=== PATIENT | female | born 1985 | race Caucasian/White ===

== ENCOUNTER 2017-02-09 21:30 | Observation (INO) | payer MEDICAID ==
[~2017-02-09] VITALS: Ht 152.4 cm; Wt 69.4 kg
[~2017-02-09 21:30] MED LIST: ACETAMINOPHEN500 M4 PO; BACTRIM DS 8001 TA1 PO; BACTRIM DS 8001 TAB; CEPHALEXIN500 MG PO; FLUCONAZOLE 10100 MG PO; LORTAB 5/500 501 TAB PO; MIRENA52 MG IU; NITROGLYCERIN0.4 MG SL; PHENERGAN 25MG.25 M1 PO
[2017-02-09 21:36] VITALS: BP 131/88
[2017-02-09] MEDS ORDERED: OMEPRAZOLE40 MG PO (21:42)
--- NOTE | 2017-02-09 22:26 | Emergency Room Report ---
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 N Clinical Suspician of Infection? N Mental Status: 1 - Regular (Normal Baseline) Sepsis Risk:Low Sepsis Risk Have you (or family members/close friends) recently traveled outside the [place]? N If Yes, where/when: Have you had exposure to infectious disease within the past month? N TB? Other? Specify: Source patient, RN notes reviewed, family, old records Exam Limitations no limitations Comment progressive tenderness and reddness rt ant chest with tenderness rt breast and had seen hand compositor - pt presents with inc sx tonight Cardiac Chest Pain Chest pain indicative of cardiac No Timing/Duration this evening Severity moderate ALLERGIES Coded Allergies: No Known Allergies (02/09/17) Home Medications Reported Medications Levonorgestrel (Mirena) 52 MG IU EVERY 5 YEARS Omeprazole (Omeprazole 40MG) 40 MG PO DAILY #30 History Medical History General CAD? No Angina: No [place]: No Hypertension? No Hyperlipidemia? No CHF? No DVT? No PE? No COPD? No Asthma? No Anemia? No GERD? No Gastric ulcers? No GI Bleed? No Hernia? No Thyroid Problems? No Hypothyroidism? No CVA? No Seizures? No Diabetes? No Renal Insuffiency? No End Stage Renal Disease? No UTI? Yes Stones? No BPH? No GB Disease: No Nephritic Syndrome? No Asplenia? No Hepatitis? No Sickle Cell Disease? No Arthritis? No Migraines? No Cataracts? No Glaucoma? No MRSA? No HIV? No TB? No Anxiety? No Depression? No Cancer? No More? 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 Respiratory denies cough, denies shortness of breath, denies wheezing Cardiovascular denies chest pain, denies palpitations, denies syncope Gastrointestinal denies abdominal pain, denies diarrhea, denies vomiting Genitourinary denies: dysuria, frequency, hesitancy, hematuria. Musculoskeletal denies back pain, denies joint pain, denies joint swelling, denies neck pain Skin see HPI, denies rash, other Psychiatric/Neurological denies headache, denies seizure Physical Exam Vital Signs Vital Signs Date Time Temp Pulse Resp B/P Pulse O2 O2 Flow FiO2 Ox Delivery Rate 02/10 2136 98.7 94 18 131/88 100 - WBC >12,000 or <4,000 or 10% bands? 2 or more SIRS Criteria Met? B/P:116/69 MAP:102 Creatinine >2.0? UA output<0.5ml/kg/hr for 2 hrs? Platelet count >100,000? Lactate >2.0mmol/1? INR >1.2 or PTT > than 60 sec? Evidence of Organ Dysfunction? Provider documented clinical suspician of infection? N Sepsis Criteria Count: 1 Sepsis Risk: Low Sepsis Risk General Appearance no apparent distress Eye Exam - bilateral eye PERRL, bilateral eye EOMI Ear, Nose, Throat normal ENT inspection Neck supple Respiratory Status No: respiratory distress. Cardiovascular regular rate/rhythm, no murmur Peripheral Pulses Pulses normal Yes Gastrointestinal soft Extremities normal inspection Strength 4 Upper Ext (L), 4 Upper Ext (R), 4 Lower Ext (L), 4 Lower Ext (R) Neurologic alert, perinatal specialist II-XII nml as tested, no motor/sensory deficits Reflexes Reflexes normal No Mental status normal mood/affect Skin rt ant chest with reddness and tenderness consistent with cellulitis and no mastitis by exam Medical Decision Making LABS/Meds/Orders Pt receiving controlled substance in ED? No Results/Orders Laboratory Tests 02/09/172249: Lactic Acid 0.6 02/09/172249: Sodium 138, Potassium 3.6, Chloride 103, Carbon Dioxide 29, BUN 12, Creatinine 0.7, Estimated Creat Clear 127, Estimated GFR (MDRD) 96, Glucose 88, Calcium 9.3 , Total Bilirubin 0.5, AST 11 L, ALT 22, Alkaline Phosphatase 71, Creatine Kinase 56, CK-MB (CK-2) Rel Index 0.9, CK and CKMB Interp < 0.5, Troponin I < 0.02, Total Protein 8.2, Albumin 4.5, Globulin 3.7 H, Albumin/Globulin Ratio 1.2, WBC 12.9 H, RBC 4.37, Hgb 13.9, Hct 39.8, MCV 91.2, RDW 12.0, Plt Count 338, MPV 7.1 L, Gran % 74.0, Gran # 9.6 H, Lymphocytes % 17.1, Monocytes % 3.6 , Eosinophils % 4.7, Basophils % 0.5, Lymphocytes # 2.2, Monocytes # 0.5, Eosinophils # 0.6 H, Basophils # 0.1, PUBS MCHC 35.0, ESR 26 H, MCH 31.9 H Current Medication Orders Sig/Deondre Start time Last Medication Dose Route Stop Time Status Admin Iopamidol 75 ML ONCE ONE 02/10 15 UNV 02/10 IV 02/10 001 0004 Sodium Chloride 10 ML ONCE ONE 02/105 UNV 02/10 IV 02/10 0016 0004 Sodium Chloride 10 ML PRN PRN 02/09 2230 AC IV 02/10 2227 Orders Procedure Date/time Status DIET-NOTHING BY MOUTH 02/[address] CHEST W/ CONTRAST 02/[address] SCAN REQ 02/10 2228 Complete CHEST(2 VIEWS-NOT PORTABLE) 02/10 2228 Active IV SALINE LOCK 02/10 2228 Active CULTURE, BLOOD 02/10 2228 Active LACTIC ACID 02/10 2228 Complete SED RATE 02/10 2228 Complete C-REACTIVE PROTEIN 02/10 2228 Complete COMPLETE METABOLIC PANEL 02/10 2228 Complete CBC WITH AUTO DIFF 02/10 2228 Complete CARDIAC ENZYMES 02/10 2228 Complete Departure Departure Time of Disposition 0041 Disposition Still a Patient Clinical Impression Primary Impression: Cellulitis of chest wall Condition STABLE Referrals CLAY ALCALA (Family) discussed with dr schultz ED Critical Care Critical Care No at 0108
--- NOTE | 2017-02-09 22:26 | Emergency Room Report ---
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 N Clinical Suspician of Infection? N Mental Status: 1 - Regular (Normal Baseline) Sepsis Risk:Low Sepsis Risk Have you (or family members/close friends) recently traveled outside the [place]? N If Yes, where/when: Have you had exposure to infectious disease within the past month? N TB? Other? Specify: Source patient, RN notes reviewed, family, old records Exam Limitations no limitations Comment progressive tenderness and reddness rt ant chest with tenderness rt breast and had seen watch electrician - pt presents with inc sx tonight Cardiac Chest Pain Chest pain indicative of cardiac No Timing/Duration this evening Severity moderate ALLERGIES Coded Allergies: No Known Allergies (02/09/17) Home Medications Reported Medications Levonorgestrel (Mirena) 52 MG IU EVERY 5 YEARS Omeprazole (Omeprazole 40MG) 40 MG PO DAILY #30 History Medical History General CAD? No Angina: No [place]: No Hypertension? No Hyperlipidemia? No CHF? No DVT? No PE? No COPD? No Asthma? No Anemia? No GERD? No Gastric ulcers? No GI Bleed? No Hernia? No Thyroid Problems? No Hypothyroidism? No CVA? No Seizures? No Diabetes? No Renal Insuffiency? No End Stage Renal Disease? No UTI? Yes Stones? No BPH? No GB Disease: No Nephritic Syndrome? No Asplenia? No Hepatitis? No Sickle Cell Disease? No Arthritis? No Migraines? No Cataracts? No Glaucoma? No MRSA? No HIV? No TB? No Anxiety? No Depression? No Cancer? No More? 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 Respiratory denies cough, denies shortness of breath, denies wheezing Cardiovascular denies chest pain, denies palpitations, denies syncope Gastrointestinal denies abdominal pain, denies diarrhea, denies vomiting Genitourinary denies: dysuria, frequency, hesitancy, hematuria. Musculoskeletal denies back pain, denies joint pain, denies joint swelling, denies neck pain Skin see HPI, denies rash, other Psychiatric/Neurological denies headache, denies seizure Physical Exam Vital Signs Vital Signs Date Time Temp Pulse Resp B/P Pulse O2 O2 Flow FiO2 Ox Delivery Rate 02/10 2136 98.7 94 18 131/88 100 - WBC >12,000 or <4,000 or 10% bands? 2 or more SIRS Criteria Met? B/P:116/69 MAP:102 Creatinine >2.0? UA output<0.5ml/kg/hr for 2 hrs? Platelet count >100,000? Lactate >2.0mmol/1? INR >1.2 or PTT > than 60 sec? Evidence of Organ Dysfunction? Provider documented clinical suspician of infection? N Sepsis Criteria Count: 1 Sepsis Risk: Low Sepsis Risk General Appearance no apparent distress Eye Exam - bilateral eye PERRL, bilateral eye EOMI Ear, Nose, Throat normal ENT inspection Neck supple Respiratory Status No: respiratory distress. 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 No Results/Orders Laboratory Tests 02/09/172249: Lactic Acid 0.6 02/09/172249: Sodium 138, Potassium 3.6, Chloride 103, Carbon Dioxide 29, BUN 12, Creatinine 0.7, Estimated Creat Clear 127, Estimated GFR (MDRD) 96, Glucose 88, Calcium 9.3 , Total Bilirubin 0.5, AST 11 L, ALT 22, Alkaline Phosphatase 71, Creatine Kinase 56, CK-MB (CK-2) Rel Index 0.9, CK and CKMB Interp < 0.5, Troponin I < 0.02, Total Protein 8.2, Albumin 4.5, Globulin 3.7 H, Albumin/Globulin Ratio 1.2, WBC 12.9 H, RBC 4.37, Hgb 13.9, Hct 39.8, MCV 91.2, RDW 12.0, Plt Count 338, MPV 7.1 L, Gran % 74.0, Gran # 9.6 H, Lymphocytes % 17.1, Monocytes % 3.6 , Eosinophils % 4.7, Basophils % 0.5, Lymphocytes # 2.2, Monocytes # 0.5, Eosinophils # 0.6 H, Basophils # 0.1, PUBS MCHC 35.0, ESR 26 H, MCH 31.9 H Current Medication Orders Sig/Deondre Start time Last Medication Dose Route Stop Time Status Admin Iopamidol 75 ML ONCE ONE 02/10 15 UNV 02/10 IV 02/10 001 0004 Sodium Chloride 10 ML ONCE ONE 02/105 UNV 02/10 IV 02/10 0016 0004 Sodium Chloride 10 ML PRN PRN 02/09 2230 AC IV 02/10 2227 Orders Procedure Date/time Status DIET-NOTHING BY MOUTH 02/[address] CHEST W/ CONTRAST 02/[address] SCAN REQ 02/10 2228 Complete CHEST(2 VIEWS-NOT PORTABLE) 02/10 2228 Active IV SALINE LOCK 02/10 2228 Active CULTURE, BLOOD 02/10 2228 Active LACTIC ACID 02/10 2228 Complete SED RATE 02/10 2228 Complete C-REACTIVE PROTEIN 02/10 2228 Complete COMPLETE METABOLIC PANEL 02/10 2228 Complete CBC WITH AUTO DIFF 02/10 2228 Complete CARDIAC ENZYMES 02/10 2228 Complete Departure Departure Time of Disposition 0041 Disposition Still a Patient Clinical Impression Primary Impression: Cellulitis of chest wall Condition STABLE Referrals CLAY ALCALA (Family) discussed with dr schultz ED Critical Care Critical Care No at 0108
[2017-02-09 23:10] LABS: HEMOGLOBIN 13.9 g/dL (12.2-16.2); LYMPH # 2.2 K/mm3 (0.7-4.5); LYMPH % 17.1 % (10-50.0)
[2017-02-09 23:43] LABS: BUN 12 mg/dL (7-18); GFR (ESTIMATED) 96 ML/MIN (59-)
[2017-02-10] VITALS (7 sets, daily range): BP systolic 92–113; BP diastolic 51–64
--- NOTE | 2017-02-10 05:04 | RADIOLOGY REPORT PS360 ---
CHEST(2 VIEWS-NOT PORTABLE) HISTORY: chest pain ORDERING PHYSICIAN: Rodrigo Romero MD PATIENT AGE: 31 years FINDINGS: The cardiomediastinal silhouette and pulmonary vascularity are within normal limits. The lungs are clear without infiltrates, suspicious nodules, or pleural effusions. No acute bony abnormalities. IMPRESSION: Negative chest, no acute finding
--- NOTE | 2017-02-10 05:04 | RADIOLOGY REPORT PS360 ---
CT CHEST W/ CONTRAST INDICATION: Mass, lump, or swelling in the chest, chest wall pain, right anterior chest wall, breast area pain, redness and swelling, evaluate for abscess INFECTED CHEST WALL ORDERING PHYSICIAN: Rodrigo Romero MD PATIENT AGE: 31 years COMPARISON: None TECHNIQUE: Axial images are obtained with contrast. Sagittal and coronal reformatted images are reviewed as well. FINDINGS: No mediastinal or hilar mass. There is slight increased density within the intermediastinum probably related to residual finding tissue. Normal heart size. No suspicious pulmonary nodule. Calcified granulomas present in the right lower lobe posteriorly. No effusions or infiltrates. Minor atelectatic changes are present in the left lung base. No obvious chest wall mass. No abscess. No evidence of aortic aneurysm or central pulmonary embolus. The peripheral pulmonary arteries are not well opacified. No acute bony anomalies. Upper abdominal images are unremarkable. IMPRESSION: 1. No acute findings. No evidence of chest wall abscess. 2. Old granulomatous disease.
--- NOTE | 2017-02-10 07:19 | PHARMACY CLINIC NOTE ---
Patient Demographics Patient Demographics Admission date: 02/10/17 Date: 02/10/17 Time: 07 Allergies Coded Allergies: No Known Allergies (02/10/17) HEIGHT- FT: 5 IN: 0.00 K.429 VTE General Information Labs: Laboratory Tests 02/09 2250 Hematology Hgb (12.2 - 16.2 g/dL) 13.9 Hct (37.0 - 47.0 %) 39.8 Plt Count (142 - 424 K/mm3) 338 Disclaimer The following section includes nursing documentation that has been pulled in for pharmacy review. Patient's VTE score: 1 Patient's VTE Risk: VERY LOW RISK Clinical trial participant? No VTE prophylaxis [id number] VTE prophylaxis ordered? Yes Type of prophylaxis/treatment: [place] at 0719
--- NOTE | 2017-02-10 08:49 | HISTORY AND PHYSICAL REPORT ---
History and Physical ([facility]) Date of admission: 02/10/17 Chief complaint: right breast pain History: History of Present Illness: Ms Shah is a 31 year old female who presented to [facility] ER at the direction of Dr. Gray last PM with Breast pain and edema of the breast, upper chest wall and axilla for 2 weeks duration. She then developed erythema below the neck. She denies nipple discharge or previous breast problems. She denies fever. She did see Dr. Prado in his office 02/08/17 and an US was ordered for today. With evaluation in the ER CT of the chest was negative and CXR was negative. She was admitted with cellulitis and started on ABX. Past Medical History: Medical History: CAD? No Angina: No [place]: No Hypertension? No Hyperlipidemia? No CHF? No DVT? No PE? No COPD? No Asthma? No Anemia? No GERD? Yes Gastric ulcers? No GI Bleed? No Hernia? No Thyroid Problems? No Hypothyroidism? No CVA? No Seizures? No Diabetes? No Renal Insuffiency? No UTI? Yes Stones? No BPH? No GB Disease: No Nephritic Syndrome? No Asplenia? No Hepatitis? No Sickle Cell Disease? No Arthritis? No Migraines? No Cataracts? No Glaucoma? No MRSA? No HIV? No TB? No Anxiety? No Depression? No Cancer? No More? No Surgical history: Previous Surgery?Y C SECTION X2 LAPAROSCOPY Exploratory Laparoscopy BRONCHOSCOPY ABD R/T CYST/NODULE-CA Medications: Reported Medications Levonorgestrel (Mirena) 52 MG IU EVERY 5 YEARS Omeprazole (Omeprazole 40MG) 40 MG PO DAILY #30 Allergies: Coded Allergies: No Known Allergies (02/10/17) Family History: Family history: Negative for: CAD, DM. Social History: Smoking Hx Tobacco: No Smoker: Former Smoker Type: Cigarettes Packs/day: < 1 Pack Are you exposed to second hand No Alcohol: Alcohol: No Hx of Drug Use: Drug Use? No Review of Systems: Constitutional No: chills, weak. ENT No: ear ache, nasal congestion, sore throat. Cardiovascular Positive for: palpitations. No: chest pain, edema. Respiratory No: shortness of air, non-productive, productive cough (sputum). GI Positive for: GERD. No: constipation, diarrhea, hematemeis, hematochezia, melena, nausea, vomitting. (female) No: frequency, hematuria, pelvic pain, vaginal bleeding. Neurological No: bowel dysfunction, confusion, dizziness, headache, seizure, syncope. Musculoskeletal Positive for: joint pain (back). Physical Exam: Vital signs: 1ST Vital Signs Result Date Time Pulse Ox 100 02/10 2136 B/P 131/88 02/10 2136 Temp 98.7 02/10 2136 Pulse 94 02/10 2136 Resp 18 02/10 2136 O2 Delivery ROOM AIR 02/10 0137 Exam: General appearance: alert, active, no acute distress, well-developed, well- nourished Eyes: anicteric, pupils reactive to light ENT: mucous membranes moist, pharynx normal Neck: full range of motion, lymphadenopathy (right), thyroid (normal) Cardiovascular: regular rate & rhythm Respiratory: clear to auscultation (bilat anterior and posterior) ABD: soft, no tenderness, bowel sounds present Extremities: no peripheral edema, no calf tenderness Skin: rash (below neck in upper chest) Neuro: alert, oriented Lab data: Labs: Laboratory Tests 02/09/172249: Lactic Acid 0.6 02/09/172249: Sodium 138, Potassium 3.6, Chloride 103, Carbon Dioxide 29, BUN 12, Creatinine 0.7, Estimated Creat Clear 127, Estimated GFR (MDRD) 96, Glucose 88, Calcium 9.3 , Total Bilirubin 0.5, AST 11 L, ALT 22, Alkaline Phosphatase 71, Creatine Kinase 56, CK-MB (CK-2) Rel Index 0.9, CK and CKMB Interp < 0.5, Troponin I < 0.02, Total Protein 8.2, Albumin 4.5, Globulin 3.7 H, Albumin/Globulin Ratio 1.2, WBC 12.9 H, RBC 4.37, Hgb 13.9, Hct 39.8, MCV 91.2, RDW 12.0, Plt Count 338, MPV 7.1 L, Gran % 74.0, Gran # 9.6 H, Lymphocytes % 17.1, Monocytes % 3.6 , Eosinophils % 4.7, Basophils % 0.5, Lymphocytes # 2.2, Monocytes # 0.5, Eosinophils # 0.6 H, Basophils # 0.1, PUBS MCHC 35.0, ESR 26 H, MCH 31.9 H Microbiology 02/09 2250 BLOOD: Anaerobic Blood Culture - RECD 02/09 2250 BLOOD: Aerobic Blood Culture - RECD Radiology results: Results: 02/09/17 CXR IMPRESSION: Negative chest, no acute finding 02/09/17 CT of chest IMPRESSION: 1. No acute findings. No evidence of chest wall abscess. 2. Old granulomatous disease. Diagnosis(es): 1. Cellulitis of chest wall 2. Lymphadenitis, acute Plan: continue with ABX; will US right breast and Axilla; Dr. Prado consulted (Selina Lara APRN) Diagnosis(es): 1. Cellulitis of chest wall 2. Lymphadenitis, acute Plan: Pt seen and examined. On exam, the right upper chest wall is tender with only very mild erythema and no induration. No open areas or drainage. Concur with above assessment and plan. (Rodrigo Romero MD) at 0849 at [phone]
--- NOTE | 2017-02-10 19:21 | RADIOLOGY REPORT PS360 ---
US BREAST-RT COMPLETE W/AXILLA HISTORY: right breast pain with LADinflammation swelling redness cellulitis right breast. Lump or swelling at chest Patient Age: 31 years: Female Ordering Physician: Rodrigo Romero MD TECHNIQUE: Ultrasound right breast performed. COMPARISON :CT chest from yesterday FINDINGS Images were reviewed by hyperbaric technician with with Dr. Perez, but I been asked to dictate since she is an inpatient There is edema in the superficial soft tissues of the breast with what appears to be some associated skin thickening.. This appears to be most pronounced on the images near the nipple. And particularly evident on the images at 5-8:00 No significant underlying lesion at the breast only mild diffuse edematous appearance. Only otherwise note small 6.8 mm x 3.6 mm cyst is seen at 12:00 in the central breast,. The edema and inflammation inflammation seems less pronounced in the region about this area and thus I favor this is a small cyst rather than abscess. Small thin wall cyst . Scattered nonspecific nodes are seen at the axillary region. Largest 2.2 cm maximally. No unique enlarged nor or suspicious nodes IMPRESSION: 1. Findings compatible with cellulitis. No Abscess evident. 2. Swelling/Edema left breast, most notable on these images in the region of central breast & deep to the areola. . On submitted images the edema seems to be particularly evident towards more dependent inferior breast from 5:00-to the 8 o'clock position.. 3 No no abscess evident. No significant inflammatory fluid collection evident 4.. small 3.6 x 6.8 mm cyst at 12:00.
[2017-02-11 04:00] VITALS: BP 96/53
[2017-02-11 06:52] LABS: LYMPH # 2.4 K/mm3 (0.7-4.5); LYMPH % 22.3 % (10-50.0)
[2017-02-11 07:36] VITALS: BP 93/59
[2017-02-11 08:25] VITALS: BP 93/59
--- NOTE | 2017-02-11 08:25 | ACUTE CARE PROGRESS NOTE (QUA) ---
Progress Notes Subjective Date 02/11/17 Time 0720 Note Pt resting in bed, states she slept little due to right breast and anterior chest pain. She denies nausea or vomiting, has been up to the bathroom without difficulty, is voiding normally. She feels redness has improved, however, pain has continued since starting antibiotic. Objective Findings Laboratory Tests 02/11/17 0600: Sodium 138, Potassium 3.8, Chloride 106, Carbon Dioxide 27, BUN 10, Creatinine 0.6, Estimated Creat Clear 146, Estimated GFR (MDRD) 115, Glucose 96, Calcium 7.8 L, WBC 10.5, RBC 3.41 L, Hgb 11.0 L, Hct 31.4 L, MCV 92.1, RDW 12.3, Plt Count 267, MPV 6.9 L, Gran % 68.5, Gran # 7.2, Lymphocytes % 22.3, Monocytes % 4.0, Eosinophils % 5.0, Basophils % 0.2, Lymphocytes # 2.4, Monocytes # 0.4, Eosinophils # 0.5 H, Basophils # 0.0, PUBS MCHC 34.8, MCH 32.1 H Vital Signs Date Time Temp Pulse Resp B/P Pulse O2 O2 Flow FiO2 Ox Delivery Rate 02/11 0736 98.1 73 16 93/59 96 ROOM AIR 02/11 0400 98.5 79 16 96/53 94 ROOM AIR 02/11 0311 16 02/10 2127 16 02/10 1940 98.2 78 16 92/51 100 02/10 1900 98.2 78 20 92/51 100 ROOM AIR 02/10 1609 20 02/10 1600 98.2 75 20 96/54 97 ROOM AIR Last VS-Temp:98.1 B/P:93/59 Pulse:73 Resp:16 SaO2:96 ROOM AIR Last weight lbs:153 oz:1 K.429 Method:Bed Scales 02/10/17 Right Breast Ultrasound: 1. Findings compatible with cellulitis. No Abscess evident. 2. Swelling/Edema left breast, most notable on these images in the region of central breast & deep to the areola. On submitted images the edema seems to be particularly evident towards more dependent inferior breast from 5:00-to the 8 o 'clock position. 3. No no abscess evident. No significant inflammatory fluid collection evident . 4. Small 3.6 x 6.8 mm cyst at 12:00. Exam General appearance: alert, awake, no acute distress Neck: non-tender, full range of motion, right cervical LAD with ttp right neck, anterior chest, right axilla, and right breast Cardiovascular: regular rate & rhythm, normal peripheral pulses Respiratory: CTAB A&P ABD: non-distended, no rebound, soft, no tenderness, no guarding, no organomegaly, no palpable mass, bowel sounds present Extremities: moves all, no peripheral edema, warm, no calf tenderness Skin: rash on upper chest Neuro: alert, oriented, speech clear, no focal deficit Reviewed: medications, vital signs, lab results, radiology report, nursing notes Assessment/Plan Problem List 1. Cellulitis of chest wall 2. Lymphadenitis, acute Patient condition Improving Plan: continue current care This inpt stay is expected to cross 2 MNs from start of care Yes (JOSE LUIS DAVIS APRN) Subjective Date 02/11/17 Assessment/Plan Problem List 1. Cellulitis of chest wall 2. Lymphadenitis, acute Plan: Pt seen and examined. Concur with above. Possible discharge home tomorrow. (Rodrigo Romero MD) at 0825 at [phone]
[2017-02-11 15:54] VITALS: BP 102/54
[2017-02-11 19:44] VITALS: BP 101/59
[2017-02-11 21:40] VITALS: BP 101/59
[2017-02-12 03:56] VITALS: BP 101/63
[2017-02-12 07:21] VITALS: BP 114/64
[2017-02-12 07:55] VITALS: BP 114/64
[2017-02-12] MEDS ORDERED: AUGMENTIN 875-1 EACH PO (08:01)
[2017-02-12] MEDS ORDERED: KETOROLAC 10MG10 MG PO (08:04)
--- NOTE | 2017-02-12 08:44 | ACUTE CARE PROGRESS NOTE (QUA) ---
Progress Notes Subjective Date 02/12/17 Time 0715 Note Pt up in chair this morning, no complaints noted other than continued right breast and chest discomfort. Objective Findings Vital Signs Date Time Temp Pulse Resp B/P Pulse O2 O2 Flow FiO2 Ox Delivery Rate 02/12 0755 98.1 72 16 114/64 95 02/12 0721 98.1 72 16 114/64 95 ROOM AIR 02/12 0356 98.3 70 16 101/63 98 ROOM AIR 02/12 0027 18 02/11 2140 98.2 99 18 101/59 97 02/11 2004 18 02/11 1944 98.2 99 18 101/59 97 ROOM AIR 02/11 1554 97.9 70 16 102/54 96 ROOM AIR 02/11 1345 16 Exam General appearance: alert, awake, no acute distress Neck: non-tender, supple, right cervical lymphadenopathy with ttp right neck, chest, axilla, breast Cardiovascular: regular rate & rhythm, normal peripheral pulses Respiratory: CTAB A&P ABD: non-distended, no rebound, soft, no tenderness, no guarding, no organomegaly, no palpable mass, bowel sounds present Extremities: moves all, no peripheral edema, warm, no calf tenderness Skin: rash upper chest and right breast Neuro: alert, oriented, speech clear, no focal deficit Reviewed: medications, vital signs, lab results, radiology report, nursing notes Assessment/Plan Problem List 1. Cellulitis of chest wall 2. Lymphadenitis, acute Patient condition Improving Plan: Discharge home today. This inpt stay is expected to cross 2 MNs from start of care Yes (JOSE LUIS DAVIS APRN) Subjective Date 02/12/17 Assessment/Plan Problem List 1. Cellulitis of chest wall 2. Lymphadenitis, acute Plan: Pt seen and examined this AM. CHest wall pain is improving and now localized mostly jus to the breast. Redness on upper chest wall is resolved and right axillary node is smaller. She is stable to be discharged home on oral antibiotics and will f/u with Dr. Prado as outpt. (Rodrigo Romero MD) at [phone] at 0935
[2017-02-12 09:25] VITALS: BP 114/64
--- NOTE | 2017-02-13 08:24 | DISCHARGE SUMMARY STANDARD ---
Discharge Summary (FCA2) Date of admission: 02/10/17 Date of discharge: 02/12/17 Problem List: 1. Cellulitis of chest wall 2. Lymphadenitis, acute History of present illness: Ms Shah is a 31 year old female who presented to [facility] ER at the direction of Dr. Gray last PM with Breast pain and edema of the breast, upper chest wall and axilla for 2 weeks duration. She then developed erythema below the neck. She denied nipple discharge or previous breast problems. She denied fever. She did see Dr. Prado in his office 02/08/17 and an US was ordered for today. With evaluation in the ER CT of the chest was negative and CXR was negative. She was admitted with cellulitis and started on ABX. Exam on admission: 1ST Vital Signs Result Date Time Pulse Ox 100 02/10 2136 B/P 131/88 02/10 2136 Temp 98.7 02/10 2136 Pulse 94 02/10 2136 Resp 18 02/10 2136 O2 Delivery ROOM AIR 02/10 013 Exam: General appearance: alert, active, no acute distress, well-developed, well- nourished Eyes: anicteric, pupils reactive to light ENT: mucous membranes moist, pharynx normal Neck: full range of motion, lymphadenopathy (right), thyroid (normal) Cardiovascular: regular rate & rhythm Respiratory: clear to auscultation (bilat anterior and posterior) ABD: soft, no tenderness, bowel sounds present Extremities: no peripheral edema, no calf tenderness Skin: rash (below neck in upper chest) Neuro: alert, oriented Hospital Course: Patient was started on IVF, IV Augmentin and prn pain med on admission. The rash and edema of the right breast improved daily. On 02/12/17 she was ready for discharge. She was to continue with PO Augmentin and FU with Dr. Prado. Laboratory data this visit: 02/09/170: Lactic Acid 0.6 02/09/172249: Sodium 138, Potassium 3.6, Chloride 103, Carbon Dioxide 29, BUN 12, Creatinine 0.7, Estimated Creat Clear 127, Estimated GFR (MDRD) 96, Glucose 88, Calcium 9.3 , Total Bilirubin 0.5, AST 11 L, ALT 22, Alkaline Phosphatase 71, Creatine Kinase 56, CK-MB (CK-2) Rel Index 0.9, CK and CKMB Interp < 0.5, Troponin I < 0.02, Total Protein 8.2, Albumin 4.5, Globulin 3.7 H, Albumin/Globulin Ratio 1.2, WBC 12.9 H, RBC 4.37, Hgb 13.9, Hct 39.8, MCV 91.2, RDW 12.0, Plt Count 338, MPV 7.1 L, Gran % 74.0, Gran # 9.6 H, Lymphocytes % 17.1, Monocytes % 3.6 , Eosinophils % 4.7, Basophils % 0.5, Lymphocytes # 2.2, Monocytes # 0.5, Eosinophils # 0.6 H, Basophils # 0.1, PUBS MCHC 35.0, ESR 26 H, MCH 31.9 02/11/17 0600: Sodium 138, Potassium 3.8, Chloride 106, Carbon Dioxide 27, BUN 10, Creatinine 0.6, Estimated Creat Clear 146, Estimated GFR (MDRD) 115, Glucose 96, Calcium 7.8 L, WBC 10.5, RBC 3.41 L, Hgb 11.0 L, Hct 31.4 L, MCV 92.1, RDW 12.3, Plt Count 267, MPV 6.9 L, Gran % 68.5, Gran # 7.2, Lymphocytes % 22.3, Monocytes % 4.0, Eosinophils % 5.0, Basophils % 0.2, Lymphocytes # 2.4, Monocytes # 0.4, Eosinophils # 0.5 H, Basophils # 0.0, PUBS MCHC 34.8, MCH 32.1 H Imagin02/09/17 CXR IMPRESSION: Negative chest, no acute finding 02/09/17 CT of chest IMPRESSION: 1. No acute findings. No evidence of chest wall abscess. 2. Old granulomatous disease. 02/10/17 Right Breast Ultrasound: 1. Findings compatible with cellulitis. No Abscess evident. 2. Swelling/Edema left breast, most notable on these images in the region of central breast & deep to the areola. On submitted images the edema seems to be particularly evident towards more dependent inferior breast from 5:00-to the 8 o 'clock position. 3. No no abscess evident. No significant inflammatory fluid collection evident . 4. Small 3.6 x 6.8 mm cyst at 12:00. Discharge medications: Continue taking these medications: Levonorgestrel (Mirena) 1 EACH IUD 52 MILLIGRAM INTRAARTIC EVERY 5 YEARS Omeprazole (Omeprazole 40MG) 40 MG CAPSULE.DR 40 MILLIGRAM ORAL DAILY Qty = 30 Start taking the following new medications: Amoxicillin/Potassium Clav (Augmentin 875-125 Tablet) 1 EACH TABLET 1 EACH ORAL EVERY 12 HOURS (0900/2100) Qty = 14 No Refills KETOROLAC TROMETHAMINE (Ketorolac 10MG) 10 MG TABLET 10 MILLIGRAM ORAL EVERY 6 HOURS NEEDED as needed for MODERATE TO SEVERE PAIN Qty = 20 No Refills Disposition: Patient was discharged to home in stable and satisfactory condition Follow up: 5-7 days with Johan AQUINO,Robin Carty Activity: Cont Current activity Diet: Regular Discharge to: HOME Agency needed? N To continue with meds as per reconciliation sheet at 0824
== END 2017-02-12 09:25 | disposition home or self-care (01) ==
LOC: ER 21:30 → 2ND 02-10 00:48 → ER 02-10 00:48 → 2ND 02-10 01:17
PROVIDERS: Emergency Medicine
DX: I88.9 Nonspecific lymphadenitis, unspecified (principal); L03.313 Cellulitis of chest wall
CPT/HCPCS: G0378; J2405; Q9967